=== PATIENT | female | born 1955 | race Caucasian/White ===

== ENCOUNTER 2016-06-07 08:07 | Day surgery (SDC) | payer OTHER ==
--- NOTE | ~2016-06-07 | EGD ---
EGD REPORT [facility] [address] [place]. [address] NAME: JANEY HARDIN : [birth year] STATUS : REG [facility] [place] PAT#: [id number] AGE: 60 ADM/REG DATE : 06/07/16 MR#: [id number] REPORT SERV DATE: 06/07/16 DICTATED BY: DATE: REPORT STATUS : Draft TRANSCRIBED BY: [employer] DATE: 06/07/16 [facility] Patient Name: Janey Hardin Date of : 1955 Attending MD: DAVID AMADO MD Procedure Date No Time: 06/07/2016 Procedure: Colonoscopy Indications: High risk colon cancer surveillance: Personal history of non-advanced adenoma Referring MD: BOB TERAN Medicines: Monitored Anesthesia Care Complications: No immediate complications. Procedure: Pre-Anesthesia Assessment: - ASA Grade Assessment: III - A patient with severe systemic disease. After I obtained informed consent, the scope was passed under direct vision. Throughout the procedure, the patient's blood pressure, pulse, and oxygen saturations were monitored continuously. The PCF [id number] was introduced through the anus and advanced to the cecum, identified by appendiceal orifice and ileocecal valve. The colonoscopy was performed without difficulty. The patient tolerated the procedure well. The quality of the bowel preparation was good. Findings: The perianal and digital rectal examinations were normal. A sessile polyp was found in the transverse colon. The polyp was small in size. The polyp was removed with a cold snare. Resection and retrieval were complete. A sessile polyp was found at the splenic flexure. The polyp was diminutive in size. The polyp was removed with a cold biopsy forceps. Resection and retrieval were complete. No other significant abnormalities were identified in a careful examination of the remainder of the colon. There is no endoscopic evidence of inflammation, mass, ulcerations or angioectasia in the entire colon. Internal hemorrhoids were found during retroflexion and were Grade I (internal hemorrhoids that do not prolapse). No additional abnormalities were found on retroflexion. Impression: - One small polyp in the transverse colon. Resected and retrieved. - One diminutive polyp at the splenic flexure. Resected and retrieved. EGD REPORT [address] [address] NAME: JANEY HARDIN CRISTIANE : [birth year] STATUS : REG [facility] [place] PAT#: [id number] AGE: 60 ADM/REG DATE : 06/07/16 MR#: [id number] REPORT SERV DATE: 06/07/16 DICTATED BY: DATE: REPORT STATUS : Draft TRANSCRIBED BY: [employer] DATE: 06/07/16 - Internal hemorrhoids. Recommendation: - Patient has a contact number available for emergencies. The signs and symptoms of potential delayed complications were discussed with the patient. Return to normal activities tomorrow. Written discharge instructions were provided to the patient. - High fiber diet. - Discharge patient to home. - Await pathology results. - Repeat colonoscopy in 5 years for surveillance. Procedure Code(s): --- Professional --- 45768, Colonoscopy, flexible, proximal to splenic flexure; with removal of tumor(s), polyp(s), or other lesion(s) by snare technique 01405, 59, Colonoscopy, flexible, proximal to splenic flexure; with biopsy, single or multiple Diagnosis Code(s): --- Professional --- D12.3, Benign neoplasm of transverse colon K64.0, First degree hemorrhoids Z86.010, Personal history of colonic polyps CPT copyright 2013 [employer]. All rights reserved. The codes documented in this report are preliminary and upon straight cutter review may be revised to meet current compliance requirements. DAVID AMADO MD 06/07/2016 10:27 AM This report has been signed electronically. Number of Addenda: 0 Note Initiated On: 06/07/2016 9:48 AM Scope Withdrawal Time 0 hours 18 minutes 21 seconds [address] [id number]
[~2016-06-07 08:07] MED LIST: ATEN50 PO; ATV.5 PO; CARASPUDL PO; CLARIT10 PO; CO Q-10100 MG PO; IBU400 PO; MAX25 PO; MUCINEX1200 MG PO; NEUR300 PO; NEXIUM40 PO; SEROQUEL300 MG PO; VENTOLIN HFA INH; VITAMIN D PO; VITAMIN D1000 UNI1 PO; Vitamin E; Vitamin E PO; ZOL100 PO
== END 2016-06-07 23:59 | disposition home or self-care (01) ==
LOC: DMU 08:07
PROVIDERS: Internal Medicine Gastroenterology
PROC: 0DBL8ZZ Excision of Transverse Colon, Via Natural or Artificial Opening Endoscopic (ICD-10-PCS; principal; 2016-06-07 09:30)
DX: D12.3 Benign neoplasm of transverse colon (principal); K64.0 First degree hemorrhoids; K21.9 Gastro-esophageal reflux disease without esophagitis; K58.9 Irritable bowel syndrome, unspecified; I10 Essential (primary) hypertension; E78.00 Pure hypercholesterolemia, unspecified; G47.30 Sleep apnea, unspecified; J45.909 Unspecified asthma, uncomplicated; F41.9 Anxiety disorder, unspecified; F32.9 Major depressive disorder, single episode, unspecified; H26.9 Unspecified cataract; M19.90 Unspecified osteoarthritis, unspecified site; E66.01 Morbid (severe) obesity due to excess calories; Z68.42 Body mass index [BMI] 45.0-49.9, adult; Z86.010 Personal history of colon polyps; Z85.828 Personal history of other malignant neoplasm of skin; Z88.1 Allergy status to other antibiotic agents; Z79.899 Other long term (current) drug therapy; Z90.49 Acquired absence of other specified parts of digestive tract; Z98.890 Other specified postprocedural states; Z90.3 Acquired absence of stomach [part of]
CPT/HCPCS: 82962; 88305